=== PATIENT | male | born 1955 | race Caucasian/White ===

== ENCOUNTER 2024-05-03 15:03 | Emergency (ER) | payer MEDICARE, OTHER ==
[~2024-05-03] VITALS: Ht 182.9 cm; Wt 72.7 kg
[2024-05-03 16:01] VITALS: BP 110/80; PULSE 78; RESP 16; TEMP 98.2; O2SAT 99
== END 2024-05-03 16:34 | disposition left against medical advice (07) ==
LOC: ER 15:03 → EDBD 15:03 → ER 16:34
DX: S50.912A Unspecified superficial injury of left forearm, initial encounter (principal); S50.911A Unspecified superficial injury of right forearm, initial encounter; Z59.00 Homelessness unspecified; V49.69XA Unspecified car occupant injured in collision with other motor vehicles in traffic accident, initial encounter; Y93.89 Activity, other specified; Y92.89 Other specified places as the place of occurrence of the external cause; Y99.8 Other external cause status